=== PATIENT | female | born 1935 | race Caucasian/White ===

== ENCOUNTER 2022-08-29 18:39 | Inpatient (IN) | payer OTHER, MEDICARE ==
[~2022-08-29] VITALS: Ht 160 cm; Wt 69.9 kg
[2022-08-29] MEDS ORDERED: ALBUTEROL SULFATE 0.083% 2.5 MG/3 ML VIAL.NEB INH ONE (18:45)
[2022-08-29] MEDS ORDERED: methylPREDNISolone SOD SUCC/PF 62.5 MG/ML VIAL IVP ONE (18:45)
[2022-08-29] MEDS ORDERED: IPRATROPIUM BROM 0.5 MG/2.5 ML VIAL.NEB (ATROVENT) INH ONE (18:45)
[2022-08-29 19:00] VITALS: BP_SYST 153; BP_SYST 171
--- NOTE | 2022-08-29 19:00 | NUR ---
Note murtaza in ED - 08/29/22 at 1928 by BAUDILIO Patient to ER bed 1 to nikki for evaluation. Side rails up. Report given to GAUTAM PANTOJA
--- NOTE | 2022-08-29 19:00 | NUR ---
Patient to ER bed 1 to gown for evaluation. Side rails up. Report given to VERN KAY.
--- NOTE | 2022-08-29 19:29 | NUR ---
ENDORESED PT TO RAHUL PORRAS. ALL QUESTIONS AND CONCERNS ADDRESSED.
--- NOTE | 2022-08-29 19:30 | NUR ---
SOLUMEDROL IVP GIVEN.
--- NOTE | 2022-08-29 19:32 | NUR ---
COVID AND INFLUENZA SWABS OBTAINED AND SENT TO LAB.
[2022-08-29 19:39] LABS: HEMATOCRIT 25.3 % (36-48); HEMOGLOBIN 8.1 g/dL (12.0-16.0); MEAN CORPUSCULAR HEMOGLOBIN 35 pg (27-31); MEAN CORPUSCULAR HGB CONC 32 % (32-36); MEAN CORPUSCULAR VOLUME 110 fL (79.0-98.0); PLATELET COUNT (AUTO) 201 K/uL (130-430); RED CELL DISTRIBUTION WIDTH 31.8 % (9.0-15.0); WHITE BLOOD COUNT (AUTO) 17.8 K/uL (4.8-10.8)
[2022-08-29 19:40] LABS: ANION GAP 12 (5-15); CHLORIDE 98 mmol/L (98-107); CREATININE 1.33 mg/dL (0.55-1.30); GLUCOSE 116 mg/dL (70-99); UREA NITROGEN, BLOOD 55 mg/dL (8-21)
[2022-08-29 19:49] LABS: ALANINE AMINOTRANSFERASE 46 U/L (12-78); ALBUMIN 2.2 g/dL (3.4-4.8); ASPARTATE AMINOTRANSFERASE 51 U/L (10-37); TOTAL BILIRUBIN 0.6 mg/dL (0.0-1.0)
--- NOTE | 2022-08-29 20:00 | NUR ---
BIB AMB FROM HOME WITH C/O SOB FOR 2 DAYS WITH PRODUCTIVE COUGH. BREATHING TX GIVEN EN ROUTE, PT SATING AT 89% ON ARRIVAL. PT HAS A HX OF COPD AND CHF
--- NOTE | 2022-08-29 20:05 | NUR ---
BIPAP applied at 50% O2 sats 93% by pulse oximetry.
[2022-08-29 20:23] LABS: BAND % (MANUAL) 29 % (0-6); EOSINOPHILS % (MANUAL) 1 % (0-7); LYMPHOCYTES % (MANUAL) 13 % (20-46); METAMYELOCYTES % 1 % (0-0); MONOCYTES % (MANUAL) 6 % (0-11)
[2022-08-29 20:24] LABS: MYELOCYTES % 1 % (0-0)
[2022-08-29] MEDS ORDERED: AZITHROMYCIN 500 MG in NS 250 ML IV ONE (20:30)
[2022-08-29] MEDS ORDERED: cefTRIAXone 1 GM in D5W 50 ML IV ONE (20:30)
[2022-08-29] MEDS ORDERED: MAGNESIUM SULFATE 50 ML IV ONE (20:30)
[2022-08-29] MEDS ORDERED: ASPIRIN 325 MG TABLET PO ONE (20:30)
[2022-08-29] MEDS ORDERED: iohexoL 350 mgI/mL, 100 ML INFUS..BTL IV ONE (21:37)
[2022-08-29] MEDS ORDERED: cefTRIAXone 1 GM VIAL ONE (21:43)
[2022-08-29] MEDS ORDERED: AZITHROMYCIN 500 MG/VIAL (ZITHROMAX) IV ONE (21:43)
[2022-08-29] MEDS ORDERED: LORazepam 2 MG/ML VIAL ONE (21:44)
[2022-08-29] MEDS ORDERED: LORazepam 2 MG/ML VIAL IVP ONE (21:45)
[2022-08-29] MEDS ORDERED: NACL 0.9% 1,000 ML IV ONE (22:45)
[2022-08-29] MEDS ORDERED: ONDANSETRON HCL 4 MG/2 ML VIAL IVP PRN (23:00)
[2022-08-29] MEDS ORDERED: ZOLPIDEM TARTRATE 5 MG TABLET PO PRN (23:00)
[2022-08-29] MEDS ORDERED: ACETAMINOPHEN 325 MG TABLET PO PRN (23:00)
[2022-08-29] MEDS ORDERED: MORPHINE 2 MG/ML INJ. SYRINGE IVP PRN (23:00)
[2022-08-29] MEDS ORDERED: MUPIROCIN 2% TOPICAL OINTMENT 22 GM NS PRN (23:00)
[2022-08-29] MEDS ORDERED: MAGNESIUM SULFATE 50 ML IV PRN (23:00)
[2022-08-29] MEDS ORDERED: IPRATROPIUM/ALBUTEROL SULFATE 3 ML AMPUL.NEB (DUONEB) INH PRN (23:00)
[2022-08-29] MEDS ORDERED: DOCUSATE SODIUM 100 MG CAPSULE PO PRN (23:00)
[2022-08-29] MEDS ORDERED: POTASSIUM CHLORIDE 20 MEQ TAB.PRT.SR PO PRN (23:00)
--- NOTE | 2022-08-29 23:08 | NUR ---
Dr Fox spoke to pt daugther Shahram Newman and discussed the code status for the pt.
--- NOTE | 2022-08-29 23:10 | NUR ---
Admit bed requested Patient will be admitted to care of . Admitted to ICU unit. Diagnosis: RESPIRATORY FAILURE Inpatient (Yes or No) Y Observation (Yes or No) N Orientation concerns or request close to nursing station (Yes or No) N Covid Status : PENDING On vent or bipap : BIPAP Isolation requirements N Needs a sitter: N From Home (Yes or if No enter name of facility) : HOME
[2022-08-29] MEDS ORDERED: VANCOMYCIN HCL 1,000 MG in NS 250 ML IV ONE (23:30)
[2022-08-30] VITALS (14 sets, daily range): BP systolic 109–166
[2022-08-30] MEDS ORDERED: LORazepam 2 MG/ML VIAL IVP ONE (00:30)
--- NOTE | 2022-08-30 02:35 | NUR ---
Patient restless, continues to attempt to remove BiPap from face.
--- NOTE | 2022-08-30 04:16 | NUR ---
Patient resting quietly. No acute distress noted. Vital signs within normal range.
--- NOTE | 2022-08-30 05:00 | NUR ---
# 20 gauge angiocath placed to R AC. Use of asceptic technique. Opsite placed over site. Blood return noted. Blood for lab drawn from site. Flushed with 10 cc of normal saline. No evidence of infiltration noted. Patient tolerated well.
[2022-08-30] MEDS ORDERED: PIPERACILLIN/TAZOBACTAM 2.25 GM VIAL IV ONE (05:41)
[2022-08-30] MEDS ORDERED: ASPIRIN 325 MG TABLET ONE (05:45)
[2022-08-30] MEDS: PIPERACILLIN/TAZOBACTAM 2.25 GM in NS 50 ML IV SCH ×2 (05:46→07:00)
[2022-08-30] MEDS: NACL 0.9% 1,000 ML IV SCH ×3 (05:46→23:50)
[2022-08-30] MEDS ORDERED: VANCOMYCIN HCL 1000 MG/VIAL IV ONE (05:57)
--- NOTE | 2022-08-30 06:00 | NUR ---
Pt placed on Ventri mask applied at 15L. O2 sats 91% by pulse oximetry.
--- NOTE | 2022-08-30 06:57 | NUR ---
Patient restless, continues to attempt to remove ventri mask from face.
[2022-08-30 07:29] LABS: BASOPHILS % (AUTO) 0.3 % (0.0-2.0); EOSINOPHILS % (AUTO) 0.3 % (0.0-4.0); LYMPHOCYTES # (AUTO) 0.5 K/uL (1.0-5.5); LYMPHOCYTES % (AUTO) 3.4 % (20.5-51.5); MEAN CORPUSCULAR HEMOGLOBIN 36 pg (27-31); MEAN CORPUSCULAR HGB CONC 34 % (32-36); MEAN CORPUSCULAR VOLUME 106 fL (79.0-98.0); MONOCYTES % (AUTO) 14.9 % (1.7-9.3); NEUTROPHILS # (AUTO) 11.1 K/uL (1.8-7.7); NEUTROPHILS % (AUTO) 81.1 % (40.0-70.0); PLATELET COUNT (AUTO) 187 K/uL (130-430); RED CELL DISTRIBUTION WIDTH 31.3 % (9.0-15.0); WHITE BLOOD COUNT (AUTO) 13.7 K/uL (4.8-10.8)
--- NOTE | 2022-08-30 07:30 | NUR ---
REPORT RECEIVED, PT AWAKE, ALERT TO NAME ONLY, CONFUSED AT TIME AND PLACE. TACHYPNIC AT 34/MIN, ON VENTURI MASK 35%-15L AT 88%. PT COUGHING, UNABLE TO CLEAR SECRETIONS. SUCTIONED AT BEDSIDE, REPOSITONED FOR COMFORT, PT SOILED, TYRELL-AREA CLEANED AND LINENS CHANGED. PT PLACED ON 50%-VENTURI MASK-15L , NOW AT 93-94%. ORALIA WRIST RESTRAINTS SECURED, BED IN LOW POSITION, SAFETY PRECAUTIONS IN PLACE. IV VANCO INFUSING WELL TO LEFT AC IV. WILL CONT TO MONITOR CLOSELY.
[2022-08-30 07:49] LABS: RED BLOOD CELL COUNT(AUTO) 1.93 MIL/uL (4.2-6.2)
[2022-08-30 07:52] LABS: HEMATOCRIT 20.4 % (36-48)
--- NOTE | 2022-08-30 07:55 | NUR ---
CFRITICALS RECEIVED, JESSY-STONE CLEANER INFORMED TO PAGE DR CASTRO TO INFORM.
--- NOTE | 2022-08-30 08:01 | NUR ---
RT WAS CALLED AND BREATHING TX IN PROCESS
--- NOTE | 2022-08-30 08:11 | NUR ---
DR CASTRO IN ER, INFORMED OF CRITICAL LABS, NO ORDERS RECEIVED AT THIS TIME.
[2022-08-30 08:44] LABS: ANION GAP 12 (5-15); CHLORIDE 102 mmol/L (98-107); CREATININE 1.22 mg/dL (0.55-1.30); GLUCOSE 158 mg/dL (70-99); UREA NITROGEN, BLOOD 53 mg/dL (8-21)
[2022-08-30] MEDS: FUROSEMIDE 40 MG/4 ML VIAL IVP SCH (08:57)
[2022-08-30] MEDS: LORazepam 2 MG/ML VIAL IVP PRN ×2 (08:58→20:41)
--- NOTE | 2022-08-30 09:15 | NUR ---
PT RESTLESS, REMOVING VENTURI MASK WITH FACE AND MOUTH MOVEMENTS, MEDICATED WITH ATIVAN ORDERED.
[2022-08-30] MEDS: HEPARIN SODIUM,PORCINE 5,000 UNITS/ML VIAL SUBCUT SCH ×2 (09:17→20:41)
[2022-08-30] MEDS ORDERED: METO25TA3 PO (10:35)
[2022-08-30] MEDS ORDERED: CALC-808 PO (10:35)
[2022-08-30] MEDS ORDERED: FURO-150 PO (10:35)
[2022-08-30] MEDS ORDERED: CYAN1TAB47 PO (10:35)
[2022-08-30] MEDS ORDERED: VITD400 PO (10:35)
[2022-08-30] MEDS ORDERED: BETA1TAB20 PO (10:35)
[2022-08-30] MEDS ORDERED: XALEYE OP (10:35)
--- NOTE | 2022-08-30 10:36 | NUR ---
Medication reconciliation completed with information provided by [facility]. Any prior medication reconciliation on file was reviewed and corrected.
--- NOTE | 2022-08-30 10:41 | NUR ---
CTA CONTRAST FORM COMPLETED, PT READY TO GO TO CTA.
--- NOTE | 2022-08-30 10:47 | NUR ---
REPORT GIVEN TO ROSSANA KAY, UPDATED ON STATUS, LABS AND VITALS. PT STABLE FOR TRANSFER. VSS
[2022-08-30] MEDS ORDERED: iohexoL 350 mgI/mL, 100 ML INFUS..BTL IV ONE (11:01)
--- NOTE | 2022-08-30 11:14 | NUR ---
Patient will be admitted to care of DR FLETCHER. Admitted to ICU unit. Will go to room 5. Belongings list completed. Complete and up to date summary report printed. SBAR report to be given at bedside with opportunity for questions.
--- NOTE | 2022-08-30 11:30 | NUR ---
PT TAKEN TO CT THEN TO ICU. PLACED IN ROOM 5. PT SITTING UP IN BED. WITH VENTURI MASK AT 15LPM SATTING AT 94% RR26. HR 95. BP 118/65. NS RUNNING AT 80 MLS/HR. WILL CONTINUE TO MONITOR.
--- NOTE | 2022-08-30 11:31 | NUR ---
RECEIVED REPORT FROM RAHUL LEIVA TO ASSUME CARE OF PT. PT RECEIVED IN ED, TAKEN TO CT AND THEN TRANSPORTED TO ICU BED #5. PT TOLERATED WELL. PT APPEARS IN NO ACUTE DISTRESS AT THIS TIME. CARE WILL PROVIDED ORDERED BY PHYSICIAN.
[2022-08-30] MEDS: AZITHROMYCIN 500 MG in NS 250 ML IV SCH (12:08)
--- NOTE | 2022-08-30 12:17 | NUR ---
RT NOTES Per Rn, placed pt back on bipap 05/17 BUR 22 50%. Alarms are set and audible. Bipap to red outlet.
[2022-08-30] MEDS ORDERED: FUROSEMIDE 40 MG/4 ML VIAL IVP ONE (12:30)
[2022-08-30] MEDS: MORPHINE 2 MG/ML INJ. SYRINGE IVP PRN ×2 (15:07→23:47)
[2022-08-30] MEDS ORDERED: METOPROLOL TARTRATE 5 MG/5 ML VIAL IVP ONE (16:15)
[2022-08-30] MEDS: PIPERACILLIN/TAZOBACTAM 2.25 GM/ D5W 50 ML IV SCH ×4 (18:09→23:42)
--- NOTE | 2022-08-30 18:34 | NUR ---
TRENT CATH: #[id number] Trent catheter with 10 cc bulb inserted with use of sterile technique. Bulb inflated with 10 cc sterile water. Immediate return of 100 cc yellow urine noted. Bedside drainage bag placed below level of bladder. Pt tolerated procedure well.
--- NOTE | 2022-08-30 19:08 | NUR ---
Report given to RAHUL Grande
--- NOTE | 2022-08-30 19:08 | NUR ---
Pt report received. Pt alert, responsive, on BiPAP 10/5 at 40% FiO2. PIV RAC and LAC patent and secure with NS at 80 mL/hr to RAC. F/C patent and secure. Bilat soft wrist restraints in place. VSS, NAD.
[2022-08-31] VITALS (18 sets, daily range): BP systolic 105–170
[2022-08-31 03:21] LABS: HEMATOCRIT 22.6 % (36-48); HEMOGLOBIN 7.8 g/dL (12.0-16.0); MEAN CORPUSCULAR HEMOGLOBIN 34 pg (27-31); MEAN CORPUSCULAR HGB CONC 34 % (32-36); MEAN CORPUSCULAR VOLUME 99 fL (79.0-98.0); PLATELET COUNT (AUTO) 168 K/uL (130-430); RED BLOOD CELL COUNT(AUTO) 2.29 MIL/uL (4.2-6.2); RED CELL DISTRIBUTION WIDTH 30.5 % (9.0-15.0); WHITE BLOOD COUNT (AUTO) 10.6 K/uL (4.8-10.8)
[2022-08-31 03:52] LABS: BAND % (MANUAL) 10 % (0-6); BASOPHILS % (MANUAL) 0 % (0-2); EOSINOPHILS % (MANUAL) 0 % (0-7); LYMPHOCYTES % (MANUAL) 12 % (20-46); MONOCYTES % (MANUAL) 15 % (0-11)
[2022-08-31] MEDS: PIPERACILLIN/TAZOBACTAM 2.25 GM/ D5W 50 ML IV SCH ×8 (06:09→23:55)
[2022-08-31] MEDS: MORPHINE 2 MG/ML INJ. SYRINGE IVP PRN (06:10)
[2022-08-31 06:58] LABS: ANION GAP 7 (5-15); CALCIUM 8.2 mg/dL (8.4-11.0); CHLORIDE 109 mmol/L (98-107); CREATININE 1.24 mg/dL (0.55-1.30); GLUCOSE 108 mg/dL (70-99); UREA NITROGEN, BLOOD 49 mg/dL (8-21)
--- NOTE | 2022-08-31 07:30 | NUR ---
Pt report given to oncoming RN. DEVIN, IRA.
--- NOTE | 2022-08-31 07:55 | NUR ---
RT NOTES 0750 PT TAKEN OFF BIPAP AND PLACED ON 40% VENTI MASK. HR 101 RR 20 SAT 96%. RAHUL BECERRA. WILL CONT TO MONITOR. Addendum: 08/31/22 at 0758 by Nicole Bueno RT Amended: Links added.
--- NOTE | 2022-08-31 08:00 | NUR ---
mina nichols rn is in charge of this pt who is npo UNTIL SWALLOW EVAL, PT FOLLOWS COMMANDS BUT FORGETFUL, RESTRAINTS REMOVED, PT IN ZERO APPARENT DISTRESS ON 40 MASK NOW/SWALLOW TEST ORDERED FOR PT//PT HAS MUCH PHLEGM BUT SEEMS TO COUGH TO CLEAR IT//MW
[2022-08-31] MEDS: VANCOMYCIN HCL 750 MG in NS 250 ML IV SCH (09:24)
[2022-08-31] MEDS: FUROSEMIDE 40 MG/4 ML VIAL IVP SCH (09:25)
[2022-08-31] MEDS: HEPARIN SODIUM,PORCINE 5,000 UNITS/ML VIAL SUBCUT SCH ×2 (09:26→20:25)
--- NOTE | 2022-08-31 11:29 | NUR ---
Dietitian Recommendations * Recommend swallow eval per PRINT SHOP MANAGER * Initiate diet following PRINT SHOP MANAGER recommendations GS, MPH, RD Please refer to RD Assessment for further details. Thanks! Addendum: 08/31/22 at [address] Amended: Links added.
[2022-08-31] MEDS: AZITHROMYCIN 500 MG in NS 250 ML IV SCH (11:55)
[2022-08-31] MEDS ORDERED: METOPROLOL TARTRATE 5 MG/5 ML VIAL IVP ONE (12:00)
[2022-08-31] MEDS: NACL 0.9% 1,000 ML IV SCH (12:30)
[2022-08-31] MEDS: LORazepam 2 MG/ML VIAL IVP PRN (13:45)
--- NOTE | 2022-08-31 14:16 | NUR ---
rt notes 1415 placed pt back to bipap dueto desaturation. rn aware. will monitor. Addendum: 08/31/22 at 1416 by Nicole Bueno RT Amended: Links added.
--- NOTE | 2022-08-31 14:22 | NUR ---
PT GIVEN ATIVAN FOR AGITATION, BEGAN TO DESATURATE-PLACED PT ON BIPAP AT 1430//MW
[2022-08-31] MEDS ORDERED: FUROSEMIDE 20 MG/2 ML VIAL IVP ONE (14:30)
--- NOTE | 2022-08-31 15:03 | NUR ---
Wine Consultant SILVERWARE ASSEMBLER received ref. for hospice SILVERWARE ASSEMBLER went to ICU but there was no family. SILVERWARE ASSEMBLER called Dtr. Antionette who stated she had not had a discussion with anyone about Hospice care. Dtr. stated she wanted to hear from the Cardiologists and pt. is taking a med, epitine (spelling) to see if there was improvement. SILVERWARE ASSEMBLER educated dtr about hospice care. Dtr. will ask to speak to doctor re. plan of care. SILVERWARE ASSEMBLER and dtr agreed SILVERWARE ASSEMBLER will leave a list of hospice agencies at the administrative assistant front desk for her.
--- NOTE | 2022-08-31 17:11 | NUR ---
rt notes 1710 pt placed on .50 venti mask. rr26 hr 90 sat 93% Addendum: 08/31/22 at 1715 by Nicole Bueno RT Amended: Links added.
--- NOTE | 2022-08-31 17:20 | NUR ---
ST EVALUATION COMPLETED. ST TX NOT INDICATED AT THIS TIME. PT UNABLE TO DEMONSTRATE VOLITIONAL COUGH OR SWALLOW. UNABLE TO DEMONSTRATE ADEQUATE SWALLOW FUNCTION AND SAFETY. RECOMMEND NPO WITH ALTERNATIVE MEANS OF NUTRITION.
--- NOTE | 2022-08-31 17:38 | NUR ---
TRANSFERRED PT TO 124, TOLERATED WELL, VS STABLE/REPORT TO SKEIN STRAIGHTENER//MW
--- NOTE | 2022-08-31 18:20 | NUR ---
RECEIVED PATIENT FROM ICU. PATIENT A/O X1. PATIENT ON VENTI MASK AND NEEDS TO BE PLACED BACK ON BIPAP. RT CALLED TO PUT PATIENT BACK ON BIPAP. IVF INFUSING WITH NO REDNESS OR IRRITATION TO SITE. WILL CONTINUE TO MONITOR FOR SAFETY. Cecy LOERA RN.
[2022-08-31] MEDS: METOPROLOL TARTRATE 5 MG/5 ML VIAL IVP SCH (20:24)
--- NOTE | 2022-08-31 21:59 | NUR ---
RT NOTES. WAS CALLED TO PLACE PT BACK ON BIPAP @1825. NO RESP. DISTRESS NOTED. PT TOLERATING BIPAP WELL. WILL CONTINUE TO MONITOR.
[2022-09-01] VITALS: BP_SYST 151
[2022-09-01] MEDS: NACL 0.9% 1,000 ML IV SCH (01:13)
[2022-09-01] MEDS: PIPERACILLIN/TAZOBACTAM 2.25 GM/ D5W 50 ML IV SCH ×2 (05:23)
[2022-09-01 06:28] LABS: BASOPHILS % (AUTO) 0.3 % (0.0-2.0); EOSINOPHILS # (AUTO) 0.1 K/uL (0.0-0.4); EOSINOPHILS % (AUTO) 0.9 % (0.0-4.0); HEMATOCRIT 25.1 % (36-48); HEMOGLOBIN 8.5 g/dL (12.0-16.0); LYMPHOCYTES # (AUTO) 0.3 K/uL (1.0-5.5); LYMPHOCYTES % (AUTO) 2.4 % (20.5-51.5); MEAN CORPUSCULAR HEMOGLOBIN 34 pg (27-31); MEAN CORPUSCULAR HGB CONC 34 % (32-36); MEAN CORPUSCULAR VOLUME 99 fL (79.0-98.0); MONOCYTES % (AUTO) 0.3 % (1.7-9.3); NEUTROPHILS # (AUTO) 13.5 K/uL (1.8-7.7); PLATELET COUNT (AUTO) 208 K/uL (130-430); RED BLOOD CELL COUNT(AUTO) 2.54 MIL/uL (4.2-6.2); RED CELL DISTRIBUTION WIDTH 30.5 % (9.0-15.0); WHITE BLOOD COUNT (AUTO) 14.1 K/uL (4.8-10.8)
[2022-09-01 06:32] LABS: ANION GAP 11 (5-15); CALCIUM 8.2 mg/dL (8.4-11.0); CHLORIDE 112 mmol/L (98-107); CREATININE 1.12 mg/dL (0.55-1.30); GLUCOSE 101 mg/dL (70-99); UREA NITROGEN, BLOOD 41 mg/dL (8-21)
[2022-09-01 08:00] VITALS: BP_SYST 129
[2022-09-01 08:02] LABS: NEUTROPHILS % (AUTO) 96.1 % (40.0-70.0)
--- NOTE | 2022-09-01 09:15 | NUR ---
ASSESSMENT COMPLETED PT RESTLESS COMING OUT RESTRAINTS BIPAP OFF AND REPLACED O2 SAT 92-94% PT REMAINS AGITATED AND RESTLESS AT THIS TIME WILL GIVE ATIVAN ORDERED PT REPOSITIONED WILL CONTINUE TO MONITOR AND ASSESS
[2022-09-01] MEDS: VANCOMYCIN HCL 750 MG in NS 250 ML IV SCH (09:25)
[2022-09-01] MEDS: FUROSEMIDE 40 MG/4 ML VIAL IVP SCH (09:25)
[2022-09-01] MEDS: METOPROLOL TARTRATE 5 MG/5 ML VIAL IVP SCH (09:26)
[2022-09-01] MEDS: HEPARIN SODIUM,PORCINE 5,000 UNITS/ML VIAL SUBCUT SCH (09:30)
[2022-09-01] MEDS: LORazepam 2 MG/ML VIAL IVP PRN ×3 (09:32→21:28)
--- NOTE | 2022-09-01 10:04 | NUR ---
MD CASTRO IN AND SPOKE WITH DAUGHTER PT PLACE ON COMFORT MEASURES AT THIS TIME
[2022-09-01] MEDS ORDERED: MORPHINE SULFATE IN 0.9 % NACL 100 ML IV PRN (11:15)
[2022-09-01 11:50] VITALS: BP_SYST 134
--- NOTE | 2022-09-01 14:11 | NUR ---
CM: Per moer/haris, regarding hospice: she will sign up with [facility] . CM is waiting for call back from the hospice staff.
[2022-09-01 15:55] VITALS: BP_SYST 145
--- NOTE | 2022-09-01 16:30 | NUR ---
PT AGITATED WILL GIVE ATIVAN ORDERED
--- NOTE | 2022-09-01 16:36 | NUR ---
PT AGITATED AFTER BATH ATIVAN GIVEN ORDERED AWAITING PHARMACY TO BRING MORPHINE GTT CALLED PHARMACY AND PER PHARMACY MORPHINE GTT IS IN [facility] WILL START ORDERED
--- NOTE | 2022-09-01 17:55 | NUR ---
MORPHINE 2MG/HR STARTED PER MD ORDERS FOR COMFORT MEASURES
[2022-09-01 20:00] VITALS: BP_SYST 142
[2022-09-01 20:06] LABS: MYCOPLASMA PNEUMONIAE IgM <770 U/mL (0-769)
[2022-09-02 00:35] VITALS: BP_SYST 129
--- NOTE | 2022-09-02 02:57 | NUR ---
Patient resting at this time. Morphine infusing without difficulty. Turned q2. Will continue to monitor.
--- NOTE | 2022-09-02 07:15 | NUR ---
OPENING NOTE RECEIVED SBAR FROM NIGHT RN. PATIENT IN BED, RESPIRATIONS EVEN, NON LABORED, BED IN LOW AND LOCKED POSITION CALL LIGHT WITHIN REACH. BED ALARM ON. MORPHINE DRIP RUNNING ORDERED.
[2022-09-02 08:00] VITALS: BP_SYST 134
[2022-09-02 08:42] LABS: BASOPHILS % (AUTO) 0.3 % (0.0-2.0); EOSINOPHILS # (AUTO) 0.1 K/uL (0.0-0.4); EOSINOPHILS % (AUTO) 0.8 % (0.0-4.0); HEMATOCRIT 25.5 % (36-48); HEMOGLOBIN 8.8 g/dL (12.0-16.0); LYMPHOCYTES # (AUTO) 0.7 K/uL (1.0-5.5); LYMPHOCYTES % (AUTO) 7.2 % (20.5-51.5); MEAN CORPUSCULAR HEMOGLOBIN 34 pg (27-31); MEAN CORPUSCULAR HGB CONC 34 % (32-36); MEAN CORPUSCULAR VOLUME 100 fL (79.0-98.0); MONOCYTES # (AUTO) 1.5 K/uL (0.0-1.0); MONOCYTES % (AUTO) 16.7 % (1.7-9.3); NEUTROPHILS # (AUTO) 6.9 K/uL (1.8-7.7); PLATELET COUNT (AUTO) 191 K/uL (130-430); RED BLOOD CELL COUNT(AUTO) 2.55 MIL/uL (4.2-6.2); RED CELL DISTRIBUTION WIDTH 30.6 % (9.0-15.0)
[2022-09-02 08:48] LABS: ANION GAP 7 (5-15); CALCIUM 8.5 mg/dL (8.4-11.0); CHLORIDE 118 mmol/L (98-107); CREATININE 0.85 mg/dL (0.55-1.30); GLUCOSE 115 mg/dL (70-99); UREA NITROGEN, BLOOD 37 mg/dL (8-21)
[2022-09-02 09:21] LABS: WHITE BLOOD COUNT (AUTO) 9.2 K/uL (4.8-10.8)
--- NOTE | 2022-09-02 09:22 | NUR ---
CRITICAL POTASSIUM 2.9 CALLED AND SPOKE WITH DR KIM NO NEW ORDERS
--- NOTE | 2022-09-02 10:01 | NUR ---
RESTRAINTS PATIENT RESTING COMFORTABLY. REMOVED RESTRAINTS. BED IN LOW AND LOCKED POSITION, CALL LIGHT WITHIN REACH. BED ALARM ON
[2022-09-02 12:41] VITALS: BP_SYST 131
[2022-09-02 14:54] VITALS: BP_SYST 131
[2022-09-02 16:12] VITALS: BP_SYST 138
--- NOTE | 2022-09-02 19:36 | NUR ---
CLOSING NOTE PROVIDED SBAR TO NIGHT RN. PATIENT IN BED, ON BIPAP, IVF'S MORPHINE 2MG/HR RUNNING ORDERED. BED IN LOW AND LOCKED POSITION, CALL LIGHT WITHIN REACH, BED ALARM ON. ENDORSED CARE TO NIGHT RN.
--- NOTE | 2022-09-02 19:45 | NUR ---
ROUNDS PATIENT RESTING COMFORTABLY IN BED, VITALS STABLE, ON MORPHINE DRIP AT 2 MG/HR ORDERED, INFUSING WELL. NO SIGNS OF ANY PAIN AND DISCOMFORT NOTED. NEEDS ATTENDED TO. WILL CONTINUE TO MONITOR.
[2022-09-02 20:00] VITALS: BP_SYST 129
[2022-09-03 00:13] VITALS: BP_SYST 126
--- NOTE | 2022-09-03 06:55 | NUR ---
CLOSING NOTES NO SIGNIFICANT CHANGES NOTED THE WHOLE SHIFT, STILL ON MORPHINE DRIP AT 2 MG/HR, NEEDS ATTENDED TO. WILL ENDORSE TO INCOMING SHIFT.
[2022-09-03 08:00] VITALS: BP_SYST 138
[2022-09-03 08:48] LABS: ANION GAP 6 (5-15); CALCIUM 8.9 mg/dL (8.4-11.0); CREATININE 1.02 mg/dL (0.55-1.30); GLUCOSE 112 mg/dL (70-99); UREA NITROGEN, BLOOD 40 mg/dL (8-21)
[2022-09-03 09:04] LABS: BASOPHILS # (AUTO) 0.1 K/uL (0.0-0.2); BASOPHILS % (AUTO) 0.6 % (0.0-2.0); EOSINOPHILS # (AUTO) 0.1 K/uL (0.0-0.4); EOSINOPHILS % (AUTO) 0.5 % (0.0-4.0); HEMATOCRIT 28.4 % (36-48); HEMOGLOBIN 9.2 g/dL (12.0-16.0); LYMPHOCYTES # (AUTO) 0.6 K/uL (1.0-5.5); LYMPHOCYTES % (AUTO) 4.1 % (20.5-51.5); MEAN CORPUSCULAR HEMOGLOBIN 34 pg (27-31); MEAN CORPUSCULAR HGB CONC 32 % (32-36); MEAN CORPUSCULAR VOLUME 104 fL (79.0-98.0); MONOCYTES # (AUTO) 1.6 K/uL (0.0-1.0); MONOCYTES % (AUTO) 11.4 % (1.7-9.3); NEUTROPHILS # (AUTO) 11.9 K/uL (1.8-7.7); NEUTROPHILS % (AUTO) 83.4 % (40.0-70.0); PLATELET COUNT (AUTO) 226 K/uL (130-430); RED BLOOD CELL COUNT(AUTO) 2.72 MIL/uL (4.2-6.2); RED CELL DISTRIBUTION WIDTH 29.7 % (9.0-15.0)
[2022-09-03 09:05] LABS: CHLORIDE 121 mmol/L (98-107)
[2022-09-03 09:43] LABS: WHITE BLOOD COUNT (AUTO) 14.3 K/uL (4.8-10.8)
[2022-09-03 11:52] VITALS: BP_SYST 138
[2022-09-03 14:06] LABS: ASPERGILLUS FLAVUS Negative (Neg:<1:1); ASPERGILLUS FUMIGATUS Negative (Neg:<1:1)
[2022-09-03 16:13] VITALS: BP_SYST 119
[2022-09-03] MEDS: MORPHINE SULFATE IN 0.9 % NACL 100 ML IV PRN ×2 (18:01→19:29)
--- NOTE | 2022-09-03 18:01 | NUR ---
Nutrition F/U RD reviewed pt's current EMR including diet Hx, physician notes, nursing notes, pertinent labs/meds/procedures, care trends, and care activity. Current Diet Order/Nutrition Support: NPO x2 days Subjective Info: Per EMR review, pt has D/C orders for hospice; comfort care/DNR/DNI/morphine drip in place. Nutrition intervention not applicable at this time. Please consult RD if alternative nutrition support is warranted. Pt will be monitored within 7 days, at low nutritional risk at this time.
--- NOTE | 2022-09-03 18:11 | NUR ---
PATIENT STATUS UNCHANGED, COMFORT MEASURES MAINTAINED. MORPHINE DRIP INCREASED TO 6MG/HR. CONTINUE TO MONITOR CLOSELY.
[2022-09-03 20:00] VITALS: BP_SYST 103
--- NOTE | 2022-09-03 20:05 | NUR ---
PT COMATOSE, ON BPAP, RR 22, O2 SAT 80%. IV TO LUE SITE CDI. MORPHINE SULFATE INFUSING AT 6ML/HR. PT ON COMFORT MEASURES. F/C WITH SECURE DEVICE DRAINING TEA COLOR URINE. PALPABLE PULSES THROUGHOUT. NO GRIMACING NOTED. WILL CONTINUE TO MONITOR CLOSELY.
[2022-09-04 01:13] VITALS: BP_SYST 72
--- NOTE | 2022-09-04 02:45 | NUR ---
PT ON 09/04/22 @0219 MARY Arango RN AND ROCK Coats RN PRONOUNCED PT'S . NOTIFIED NEXT OF [place] [facility]. [place]ED [facility]. ATTAINED RELEASE OF BODY T.O CONSENT SPOKE TO KAREN FROM [facility] ([phone]) ALL PERTINENT INFORMATION GIVEN. THE BODY WILL BE PICKED UP BETWEEN 1.5-2 HOURS. ROCK Coats RN IS CALLING [facility]. Addendum: 09/04/22 at 0316 by [facility], RAHUL KAY CORPORATE EVENTS DIRECTOR AND CHARGE NURSE NOTIFIED. Addendum: 09/04/22 at 0357 by [facility], RAHUL KAY IV'S AND F/C REMOVED. Addendum: 09/04/22 at 0417 by [place] RAHUL Tovar RN 0416: ALL PAPER WORK IN ORDER. MORTUARY PERSONNEL HERE TO STOCK FEEDER BODY.
--- NOTE | 2022-09-04 03:02 | NUR ---
[facility] was [facility], s/w Kaylee and she said they will not take the referral. Case # [id number] [facility] [employer] was called and s/w Alfonzo. She said this is not a electric operator's case.
--- NOTE | 2022-09-04 03:09 | NUR ---
NOTIFIED ATTENDING MD Dr. Malcolm Dean is covering for Dr. Ribera and he was notified patient .
--- NOTE | 2022-09-04 04:37 | NUR ---
NOTIFIED OF PT EXPIRATION
== END 2022-09-04 02:19 | DRG 871 ==
LOC: SED 18:39 → SIC 23:30 → SMU 08-31 17:58 → STU 08-31 18:17
PROVIDERS: ADMIT General Practice; ATTEND General Practice
PROC: 30233N1 Transfusion of Nonautologous Red Blood Cells into Peripheral Vein, Percutaneous Approach (ICD-10-PCS; principal; 2022-08-30)
PROC: 5A09357 Assistance with Respiratory Ventilation, Less than 24 Consecutive Hours, Continuous Positive Airway Pressure (ICD-10-PCS; 2022-08-30)
PROC: 5A09357 Assistance with Respiratory Ventilation, Less than 24 Consecutive Hours, Continuous Positive Airway Pressure (ICD-10-PCS; 2022-08-31)
PROC: 5A09457 Assistance with Respiratory Ventilation, 24-96 Consecutive Hours, Continuous Positive Airway Pressure (ICD-10-PCS; 2022-09-01)
DX: A41.9 Sepsis, unspecified organism (principal); I21.A1 Myocardial infarction type 2; J69.0 Pneumonitis due to inhalation of food and vomit; J96.01 Acute respiratory failure with hypoxia; N17.0 Acute kidney failure with tubular necrosis; E87.1 Hypo-osmolality and hyponatremia; E44.0 Moderate protein-calorie malnutrition; J44.0 Chronic obstructive pulmonary disease with (acute) lower respiratory infection; J44.1 Chronic obstructive pulmonary disease with (acute) exacerbation; Z66 Do not resuscitate; E78.5 Hyperlipidemia, unspecified; I46.9 Cardiac arrest, cause unspecified; D63.8 Anemia in other chronic diseases classified elsewhere; Z20.822 Contact with and (suspected) exposure to COVID-19; D46.9 Myelodysplastic syndrome, unspecified; I10 Essential (primary) hypertension; F03.90 Unspecified dementia, unspecified severity, without behavioral disturbance, psychotic disturbance, mood disturbance, and anxiety; Z87.891 Personal history of nicotine dependence; Z88.8 Allergy status to other drugs, medicaments and biological substances; Z79.899 Other long term (current) drug therapy; Z68.27 Body mass index [BMI] 27.0-27.9, adult
CPT/HCPCS: 36415; 36600; 71045; 71275; 76376; 80048; 80053; 82803-TC; 83036; 83605; 83735; 83880; 84484; 85007; 85025; 85027; 86606; 86738; 86886; 86900; 86901; 86920; 87040; 87305; 87497; 92610-GN; 93005; 93306; 94640; 94660; 94760; 96365; 96366; 96367; 96368; 96372; 96375; 99285; G0378; J0456; J0696; J1644; J1940; J2060; J2270; J2543; J2930; J3370; J3475; J3490; J7050; J7060; J7613; P9021; Q9967